=== PATIENT | female | born 1970 | race African-American/Black ===

== ENCOUNTER 2024-09-18 23:13 | Inpatient (IN) | payer BC ==
[~2024-09-18] VITALS: Ht 160 cm; Wt 71.8 kg
[2024-09-18] MEDS ORDERED: AMLO2.5T4 PO (23:33)
[2024-09-19] VITALS (9 sets, daily range): BP systolic 94–109; BP diastolic 51–61; TEMP 98.2–99.2; O2SAT 94–100
[2024-09-19] MEDS: IV NS 1000 ML 1,000 ML IV ONE ×3 (00:46→02:33)
[2024-09-19 01:04] LABS: PLATELET COUNT (AUTO) 181 K/uL (179-408); RED BLOOD CELL COUNT(AUTO) 2.57 MIL/uL (3.63-4.92); RED CELL DISTRIBUTION WIDTH 14.4 % (12.3-17.7); WHITE BLOOD COUNT (AUTO) 9.6 K/uL (3.8-11.8)
[2024-09-19 01:10] LABS: CREATININE 1.5 mg/dL (0.6-1.3); SODIUM SERUM 140.0 mmol/L (136-145); UREA NITROGEN, BLOOD 24.0 mg/dL (7-18)
[2024-09-19 01:20] LABS: LACTIC ACID 4.1 mmol/L (0.4-2.0)
[2024-09-19 01:26] LABS: ASPARTATE AMINOTRANSFERASE 65.0 U/L (15-37); TOTAL PROTEIN, SERUM 5.5 g/dL (6.4-8.2)
[2024-09-19] MEDS ORDERED: PROC-11 PO (01:30)
[2024-09-19] MEDS ORDERED: AMOX1TAB15 PO (01:30)
[2024-09-19] MEDS ORDERED: GABA800T11 PO (01:30)
[2024-09-19] MEDS ORDERED: HYDR-3980 PO (01:30)
[2024-09-19] MEDS ORDERED: AMLO10TA59 PO (01:30)
[2024-09-19] MEDS ORDERED: PIPERACILLIN/TAZOBACTAM/D5W 50 ML IV ONE (01:45)
[2024-09-19] MEDS: PIPERACILLIN SODIUM/TAZOBACTAM 3.375 G in IV DEXTROSE 5% 50 ML IV ONE (01:52)
[2024-09-19] MEDS ORDERED: SODIUM ZIRCONIUM CYCLOSILICATE 10 GM POWD.PACK ONE (02:00)
[2024-09-19] MEDS: SODIUM ZIRCONIUM CYCLOSILICATE 10 GM POWD.PACK PO ONE (02:04)
[2024-09-19] MEDS ORDERED: MORPHINE SULFATE 2 MG/1 ML DISP.SYRIN ONE (05:26)
[2024-09-19] MEDS ORDERED: ONDANSETRON 4 MG/2 ML VIAL ONE (05:27)
[2024-09-19] MEDS: ONDANSETRON 4 MG/2 ML VIAL IV ONE (05:34)
[2024-09-19] MEDS: MORPHINE SULFATE 2 MG/1 ML DISP.SYRIN IV ONE (05:34)
[2024-09-19] MEDS ORDERED: MAGNESIUM HYDROXIDE 30 ML LIQUID UDC PO PRN (06:15)
[2024-09-19] MEDS: PANTOPRAZOLE SODIUM 40 MG TABLET.DR PO SCH (07:01)
[2024-09-19] MEDS: IV NS 1000 ML 1,000 ML IV PRN (07:02)
[2024-09-19 07:20] LABS: ASPARTATE AMINOTRANSFERASE 48.0 U/L (15-37); CREATININE 1.3 mg/dL (0.6-1.3); SODIUM SERUM 144.0 mmol/L (136-145); TOTAL PROTEIN, SERUM 4.6 g/dL (6.4-8.2); UREA NITROGEN, BLOOD 22.0 mg/dL (7-18)
[2024-09-19 07:23] LABS: PLATELET COUNT (AUTO) 160 K/uL (179-408); RED CELL DISTRIBUTION WIDTH 14.6 % (12.3-17.7); WHITE BLOOD COUNT (AUTO) 9.2 K/uL (3.8-11.8)
[2024-09-19 07:42] LABS: RED BLOOD CELL COUNT(AUTO) 2.21 MIL/uL (3.63-4.92)
[2024-09-19 08:51] LABS: NEUTROPHILS % (MANUAL) 82 % (42-75)
[2024-09-19 08:52] LABS: LYMPHOCYTES % (MANUAL) 10 % (20-40); MONOCYTES % (MANUAL) 8 % (2-10)
[2024-09-19 08:53] LABS: PLATELET ESTIMATE DECREASED
[2024-09-19] MEDS ORDERED: FERR325T24 PO (10:51)
[2024-09-19] MEDS ORDERED: MULT-225 PO (10:51)
[2024-09-19] MEDS ORDERED: [UNRECOGNIZED DRUG - OTHER] PO (10:53)
[2024-09-19] MEDS: MAGNESIUM OXIDE 400 MG TABLET PO SCH (11:10)
[2024-09-19] MEDS: ACETAMINOPHEN 325 MG TABLET PO PRN (11:10)
[2024-09-19] MEDS: ONDANSETRON 4 MG/2 ML VIAL IV PRN (11:11)
[2024-09-19] MEDS ORDERED: PIPERACILLIN SODIUM/TAZOBACTAM 3.375 G in IV DEXTROSE 5% 50 ML IV SCH (14:00)
[2024-09-19] MEDS ORDERED: Medication Not On Formulary EA (Prochlorperazine Maleate (Compazine) 10 MG) PO PRN (14:30)
[2024-09-19] MEDS: PIPERACILLIN SODIUM/TAZOBACTAM 3.375 G in IV DEXTROSE 5% 100 ML IV SCH (14:39)
[2024-09-19 18:46] LABS: PLATELET COUNT (AUTO) 131 K/uL (179-408); RED CELL DISTRIBUTION WIDTH 14.5 % (12.3-17.7); WHITE BLOOD COUNT (AUTO) 7.0 K/uL (3.8-11.8)
[2024-09-19 18:59] LABS: RED BLOOD CELL COUNT(AUTO) 1.88 MIL/uL (3.63-4.92)
[2024-09-19 19:02] LABS: IRON, SERUM 22 ug/dL (50-175)
[2024-09-19] MEDS: GABAPENTIN 400 MG CAPSULE PO SCH (20:32)
[2024-09-20] VITALS (12 sets, daily range): BP systolic 107–128; BP diastolic 64–78; TEMP 98–99.6; O2SAT 96–98
[2024-09-20] MEDS: HYDROCODONE/APAP 10-325 MG TABLET PO PRN (04:43)
[2024-09-20 06:49] LABS: PLATELET COUNT (AUTO) 122 K/uL (179-408); RED BLOOD CELL COUNT(AUTO) 2.59 MIL/uL (3.63-4.92); RED CELL DISTRIBUTION WIDTH 20.3 % (12.3-17.7); WHITE BLOOD COUNT (AUTO) 8.0 K/uL (3.8-11.8)
[2024-09-20 07:08] LABS: ASPARTATE AMINOTRANSFERASE 36.0 U/L (15-37); CREATININE 1.1 mg/dL (0.6-1.3); SODIUM SERUM 140.0 mmol/L (136-145); TOTAL PROTEIN, SERUM 4.8 g/dL (6.4-8.2); UREA NITROGEN, BLOOD 13.0 mg/dL (7-18)
[2024-09-20] MEDS ORDERED: Medication Not On Formulary EA (Multivitamins (Multiple Vitamins) 1 TAB) PO SCH (09:00)
[2024-09-20] MEDS: FERROUS SULFATE 325 MG TABEC PO SCH (09:07)
[2024-09-20] MEDS: MULTIVITAMINS,THERAPEUTIC TABLET PO SCH (09:07)
[2024-09-20] MEDS: MAGNESIUM OXIDE 400 MG TABLET PO ONE (12:28)
[2024-09-20] MEDS: AMOXICILLIN-CLAVUL 500-125MG TABLET PO SCH (21:53)
[2024-09-21 04:50] VITALS: BP 116/76; TEMP 99; O2SAT 99
[2024-09-21 06:56] LABS: PLATELET COUNT (AUTO) 151 K/uL (179-408); RED BLOOD CELL COUNT(AUTO) 2.98 MIL/uL (3.63-4.92); RED CELL DISTRIBUTION WIDTH 19.3 % (12.3-17.7); WHITE BLOOD COUNT (AUTO) 9.0 K/uL (3.8-11.8)
[2024-09-21 07:51] VITALS: TEMP 98.6
[2024-09-21] MEDS: PROCHLORPERAZINE MALEATE 5 MG TABLET PO PRN (08:24)
[2024-09-21] MEDS ORDERED: METOCLOPRAMIDE HCL 10 MG/2 ML VIAL IV PRN (11:00)
[2024-09-21] MEDS: MORPHINE SULFATE 2 MG/1 ML DISP.SYRIN IV PRN (11:08)
[2024-09-21 11:10] VITALS: BP 115/77; TEMP 98.4; O2SAT 99
[2024-09-21 11:21] VITALS: TEMP 98.6
== END 2024-09-21 13:30 | disposition home or self-care (01) | DRG 811 ==
LOC: ER 23:24 → TELE3 09-19 05:48 → MEDSURG3 09-19 07:02
PROVIDERS: ADMIT Nurse Practitioner Family; ATTEND Student in an Organized Health Care Education/Training Program
PROC: 30233N1 Transfusion of Nonautologous Red Blood Cells into Peripheral Vein, Percutaneous Approach (ICD-10-PCS; principal; 2024-09-19)
DX: D62 Acute posthemorrhagic anemia (principal); G92.8 Other toxic encephalopathy; N17.0 Acute kidney failure with tubular necrosis; E44.0 Moderate protein-calorie malnutrition; E87.20 Acidosis, unspecified; D69.6 Thrombocytopenia, unspecified; E86.0 Dehydration; E87.5 Hyperkalemia; I10 Essential (primary) hypertension; R74.01 Elevation of levels of liver transaminase levels; I95.9 Hypotension, unspecified; T40.2X5A Adverse effect of other opioids, initial encounter; Y92.230 Patient room in hospital as the place of occurrence of the external cause
CPT/HCPCS: 36415; 70030-TC; 70450; 71045; 83550; 83605; 83690; 83735; 84100; 84484; 85025; 86850; 86900; 86901; 86920; 87040; 93307; G0378; J2270; J2405; J2543; J7040; J8499; P9016